=== PATIENT | male | born 1965 | race Caucasian/White ===

== ENCOUNTER → 2017-09-21 | Outpatient (CLI) | payer MEDICAID ==
[2017-09-21 15:11] LABS: CHOLESTEROL 175 mg/dL (<200); HDL CHOLESTEROL 31 mg/dL (>40); LDL CHOLESTEROL 111 mg/dL (<100); TC:HDL 5.6 Ratio (Not establshd); TRIGLYCERIDE 168 mg/dL (<150); VLDL 34 mg/dL (<40)
[2017-09-21 15:12] LABS: SERUM ASSESSMENT Clear
== END ==
LOC: M.LAB 13:07
DX: F25.9 Schizoaffective disorder, unspecified (principal); Z79.899 Other long term (current) drug therapy

== ENCOUNTER 2018-11-22 03:35 | Emergency (ER) | payer OTHER ==
[~2018-11-22] VITALS: Ht 175.3 cm; Wt 113.6 kg
[2018-11-22] MEDS ORDERED: DEPAKOTE500 MG PO (03:47)
[2018-11-22] MEDS ORDERED: TENORMIN50 MG PO (03:48)
[2018-11-22] MEDS ORDERED: RISPERDAL 3 MG T3 M1 PO (03:48)
[2018-11-22] MEDS ORDERED: ATENOLOL 50MG T50 MG PO (04:17)
[2018-11-22 04:39] VITALS: BP 131/86
--- NOTE | 2018-11-22 16:21 | EKG ---
[place] [address] ELECTROCARDIOGRAM REPORT Name: TATI GRIFFIN [id number] Admission: 11/22/18 Attend Phys: Discharge: 11/22/18 Date of : 61 Report #: [id number] THIS REPORT FOR: //name// [facility] ED Test Date: 2018-11-22 Test Time: 03:43:15 Pat Name: TATI GRIFFIN Department: Room: Gender: M Olive Picker: [place] : 1965 Requested By: Marlin Coleman Order Number: [id number] Reading : Ayo Vieira Measurements Intervals [place] Rate: 75 P: 35 UT: 133 QRS: 70 QRSD: 102 T: 19 QT: 359 QTc: 401 Interpretive Statements Sinus rhythm No previous ECG available for comparison Electronically Signed On 11-22-2018 16:21:03 CDT by Ayo Vieira [email or web address] <ELECTRONICALLY SIGNED> By: Ayo Vieira MD, [facility] 11/22/18 1621 0343 0343 Ayo Vieira MD, FACC /EPI
== END 2018-11-22 04:42 | disposition home or self-care (01) ==
LOC: M.ERS 03:35
DX: I10 Essential (primary) hypertension (principal); R06.2 Wheezing; F25.9 Schizoaffective disorder, unspecified; F17.200 Nicotine dependence, unspecified, uncomplicated; Z76.0 Encounter for issue of repeat prescription; Z88.0 Allergy status to penicillin